=== PATIENT | male | born 1980 | race Caucasian/White ===

== ENCOUNTER 2020-11-29 14:32 | Emergency (ER) | payer MEDICAID, SELFPAY ==
[2020-11-29 15:12] VITALS: BP 149/92; PULSE 104; RESP 18; TEMP 36.9; O2SAT 97; BMI 36.3
--- NOTE | 2020-11-29 15:25 | ED_ITS ---
HPI - Animal Bite General: Chief Complaint: Animal Bite Stated Complaint: Spider bite, diarrhea Time Seen by Provider: 11/29/20 15:22 History of Present Illness: HPI narrative: Patient is a 40-year-old male comes to the ED with a spider bite on the left chest. Patient says bite occurred about 5 days ago. He woke up in the morning 5 days ago when had a red spot that was sore on his left chest. He found a spider leg and is chest hair, so is pretty sure it was a brown recluse bite. the house he lives and has a lot of brown recluse spiders. Patient is also reporting diarrhea for the past 4 days as well. Patient says whenever he eats something he gets abdominal cramping and immediately has diarrhea. Denies any fever, chills, nausea/vomiting, abdominal tenderness or bladder symptoms. Associated symptoms: Deny chills, fever(s) or headache(s) Review of Systems Const: Denies: fever(s), chills or fatigue Eyes: Denies: change in vision or eye discomfort ENMT: Denies: throat pain, odynophagia, nasal discharge or nasal congestion Card: Denies: chest pain, palpitations, edema, swelling of feet/ankles, dyspnea on exertion or orthopnea Resp: Denies: dyspnea, productive cough or non-productive cough GI: Reports: diarrhea; Denies: abdominal pain, nausea, vomiting, constipation or hematochezia : Denies: flank pain, difficulty urinating, dysuria or hematuria Musc: Denies: neck pain, back pain or extremity swelling Skin/Breast: Reports: new lesions (Some more erythemic lesion on left chest); Denies: rash Neuro: Denies: headache(s), numbness in extremities or weakness in extremities Physical Exam Const: COMMON NORMALS: no acute distress, patient oriented x3 and alert GENERAL APPEARANCE: cooperative and comfortable HENMT: COMMON NORMALS: normocephalic HEAD & SCALP: normocephalic MOUTH: Normal oral and palatal mucosa present THROAT: posterior oropharynx normal and uvula midline Neck/C-Spine: COMMON NORMALS: supple GENERAL: Yes normal visual inspection Resp: COMMON NORMALS: normal respiratory effort, No retractions, No use of accessory muscles and clear to auscultation bilaterally AUSCULTATION: clear to auscultation bilaterally Cardio: COMMON NORMALS: regular rate, regular rhythm, S1 normal heart sound present, S2 normal heart sound present, No gallops present (Cardio), No clicks present (Cardio), No murmurs present (Cardio) and Peripheral pulses 2+ throughout RATE: regular rate RHYTHM: regular rhythm HEART SOUNDS: S1 normal heart sound present and S2 normal heart sound present PERIPHERAL PULSES: Peripheral pulses 2+ throughout GI: COMMON NORMALS: Normal to inspection, nondistended, normoactive bowel sounds present, Soft to palpation, non-tender and no masses PALPATION: Yes Soft to palpation : COMMON NORMALS: Yes no CVA tenderness BLADDER/KIDNEY EXAM: Yes no CVA tenderness Back/Pelvis: COMMON NORMALS: no CVA tenderness Extremity: COMMON NORMALS: normal to inspection Neuro: COMMON NORMALS: patient oriented x3 and moves all extremities SENSORIUM/ORIENTATION: Yes alert Skin: NARRATIVE SKIN EXAM: Left chest?erythemic and warm tender nodule. Nonfluctuant and indurated. Findings suggestive of possible spider bite. GENERAL SKIN EXAM: dry skin Course Vital Signs: Vital signs: Vital Signs Temperature 98.5 F 11/29/20 15:12 Pulse Rate 106 H 11/29/20 16:20 Respiratory Rate 18 11/29/20 16:20 Blood Pressure 155/96 11/29/20 16:20 Pulse Oximetry 106 H 11/29/20 16:20 MDM - Animal Bite MDM Narrative: Medical decision making narrative: Patient is a 40-year-old male comes to the ED with a spider bite that has some surrounding erythema, tenderness and warmth. It is nonfluctuant and indurated. Patient is also complaining of some diarrhea for the past couple days with some abdominal cramping that relieves after BM. Patient appears healthy, nontoxic and in no acute distress. Vital stable. Patient diagnosed with a spider bite and diarrhea and discharged home with clindamycin and dicyclomine. Told to follow- up with his PCP in 7 to 10 days reevaluation. Return to ED precautions given. Patient understood and agree with plan. Discharge Plan Discharge Patient Disposition: Home Clinical Impression: Spider bite Qualifiers: Encounter type: initial encounter Injury intent: accidental or unintentional Qualified Code(s): T63.301A - Toxic effect of unspecified spider venom, accidental (unintentional), initial encounter Diarrhea Qualifiers: Diarrhea type: unspecified type Qualified Code(s): R19.7 - Diarrhea, unspecified Condition: Stable Prescriptions: New clindamycin HCl 150 mg capsule 300 mg PO QID 7 Days Qty: 56 RF: 0 dicyclomine 20 mg tablet 20 mg PO QID PRN (Reason: Abdominal Cramping) Qty: 20 RF: 0 Discharge Orders: Discharge ED (Routine); Ordered 11/29/20 Ordered By: Jace Anthony Referrals: [facility] Lopez, [facility] [Family Provider] - Discharge Diet: Regular Discharge Activity: Resume usual activity Patient Instructions: Brown Recluse Spider Bite (ED), Acute Diarrhea (ED) Activity Restrictions/Additional Instructions: Follow-up with medical provider as directed in 7 to 10 days for evaluation. Antonio e medications as prescribed. Return to the ER or your medical provider if condition worsens. Please read and understand discharge instructions. Thank you for choosing [facility] for your healthcare needs today. Please realize this is an emergency room and that we are providing you with a medical screening exam and this may not be complete and all inclusive of all the testing and or work up that you may need to determine your ailment or severity of your illness. It is very important that you follow up as instructed or that you return to the Emergency Department should you have concerns or if your condition changes or worsens in any way. Coding Level of Care Code ED Hr Associate for David Collier Exam Comprehensive
[2020-11-29 16:20] VITALS: BP 155/96; PULSE 106; RESP 18; O2SAT 106
== END 2020-11-29 16:25 | disposition home or self-care (01) ==
PROVIDERS: Emergency Provider Physician Assistant; Family Provider Nurse Practitioner Family
DX: T63.301A Toxic effect of unspecified spider venom, accidental (unintentional), initial encounter (principal); R19.7 Diarrhea, unspecified
CPT/HCPCS: 99282